=== PATIENT | male | born 1945 | race Caucasian/White ===

== ENCOUNTER → 2020-03-01 09:26 | Outpatient (CLI) | payer MEDICARE, SELFPAY ==
[2020-03-01 10:04] VITALS: BP 148/64; PULSE 60; RESP 16; TEMP 36.9; O2SAT 97; BMI 26.4
--- NOTE | 2020-03-01 11:29 | RAD_ITS ---
EXAM DESCRIPTION: PORTABLE AP CHEST CLINICAL HISTORY: 74 years Male, Line placement. Line placement. COMPARISON: None FINDINGS: Sternotomy sutures are noted in place. The rest of the thorax is intact. The heart and mediastinum appear to be within normal limits. The lungs appear to be well areated without evidence of pneumonic consolidation or pleural effusion. RAD/CXR for Line Placement IMPRESSION: Normal portable chest. Electronically Signed: Meliton Palm, at 9:46 EST Tel , Service support ,
[2020-03-01] MEDS: 0.9% NaCl IVPB Med Flush (250 mL) 15 ML IV (12:07)
[2020-03-01] MEDS: 0.9% NaCl PICC Flush IV ×2 (12:07→13:00)
[2020-03-01 12:09] VITALS: BP 144/69; PULSE 55; RESP 16; TEMP 35.9; O2SAT 100; BMI 26.4
[2020-03-01 13:00] VITALS: BP 149/69; PULSE 55; RESP 18; O2SAT 100
== END ==
LOC: RAD 09:36 → MEDOUTP 12:33
PROVIDERS: PCP Internal Medicine; Referring Provider Urology; Visit Provider Urology
DX: N39.0 Urinary tract infection, site not specified (principal)
CPT/HCPCS: 96365; 36569; 71045; J7050; A4216

== ENCOUNTER → 2020-03-01 11:49 | Outpatient (CLI) | payer MEDICARE, SELFPAY ==
[2020-03-01 10:04] VITALS: BMI 26.4
== END ==
PROVIDERS: PCP Internal Medicine; Referring Provider Urology; Visit Provider Urology
DX: Z00.00 Encounter for general adult medical examination without abnormal findings (principal)

== ENCOUNTER → 2020-03-02 08:02 | Outpatient (CLI) | payer MEDICARE, SELFPAY ==
[2020-03-01 12:09] VITALS: BMI 26.4
[2020-03-02 08:21] VITALS: BP 124/56; PULSE 62; TEMP 36.7; BMI 26.4
[2020-03-02] MEDS: 0.9% NaCl PICC Flush IV ×2 (08:35→09:17)
[2020-03-02] MEDS: 0.9% NaCl IVPB Med Flush (250 mL) 15 ML IV (08:36)
[2020-03-02 09:15] VITALS: BP 121/56; PULSE 63; TEMP 36.4; O2SAT 96
== END ==
PROVIDERS: PCP Internal Medicine; Referring Provider Urology; Visit Provider Urology
DX: N39.0 Urinary tract infection, site not specified (principal)
CPT/HCPCS: 96365; J7050; A4216

== ENCOUNTER → 2020-03-03 08:18 | Outpatient (CLI) | payer MEDICARE, SELFPAY ==
[2020-03-02 08:21] VITALS: BMI 26.4
[2020-03-03] MEDS: 0.9% NaCl IVPB Med Flush (250 mL) 15 ML IV (08:24)
[2020-03-03] MEDS: 0.9% NaCl PICC Flush IV ×2 (08:24→09:15)
[2020-03-03 08:26] VITALS: BP 142/61; PULSE 62; RESP 16; TEMP 36.2; O2SAT 97; BMI 26.4
== END ==
PROVIDERS: PCP Internal Medicine; Referring Provider Urology; Visit Provider Urology
DX: N39.0 Urinary tract infection, site not specified (principal)
CPT/HCPCS: 96365; J7050; A4216

== ENCOUNTER → 2020-03-04 07:37 | Outpatient (CLI) | payer MEDICARE, SELFPAY ==
[2020-03-03 08:26] VITALS: BMI 26.4
[2020-03-04] MEDS: 0.9% NaCl PICC Flush IV ×2 (08:29→09:19)
[2020-03-04] MEDS: 0.9% NaCl IVPB Med Flush (250 mL) 15 ML IV (08:29)
[2020-03-04 08:32] VITALS: BP 130/58; PULSE 62; RESP 16; TEMP 36.3; O2SAT 98; BMI 26.4
[2020-03-04 09:20] VITALS: BP 114/61; PULSE 58; RESP 16; TEMP 36.3; O2SAT 98
== END ==
PROVIDERS: PCP Internal Medicine; Referring Provider Urology; Visit Provider Urology
DX: N39.0 Urinary tract infection, site not specified (principal)
CPT/HCPCS: 96365; J7050; A4216

== ENCOUNTER → 2020-03-05 08:18 | Outpatient (CLI) | payer MEDICARE, SELFPAY ==
[2020-03-04 08:32] VITALS: BMI 26.4
[2020-03-05] MEDS: 0.9% NaCl IVPB Med Flush (250 mL) 15 ML IV (08:23)
[2020-03-05] MEDS: 0.9% NaCl PICC Flush IV ×2 (08:23→09:05)
[2020-03-05 08:27] VITALS: BP 118/67; PULSE 63; RESP 16; TEMP 36.3; O2SAT 96; BMI 26.4
== END ==
PROVIDERS: PCP Internal Medicine; Referring Provider Urology; Visit Provider Urology
DX: N39.0 Urinary tract infection, site not specified (principal)
CPT/HCPCS: 96365; J7050; A4216

== ENCOUNTER → 2020-03-06 08:19 | Outpatient (CLI) | payer MEDICARE, SELFPAY ==
[2020-03-05 08:27] VITALS: BMI 26.4
[2020-03-06] MEDS: 0.9% NaCl IVPB Med Flush (250 mL) 15 ML IV (08:28)
[2020-03-06] MEDS: 0.9% NaCl PICC Flush IV ×2 (08:28→09:27)
[2020-03-06 08:33] VITALS: BP 107/60; PULSE 58; RESP 16; TEMP 36.6; O2SAT 96; BMI 26.4
== END ==
PROVIDERS: PCP Internal Medicine; Referring Provider Urology; Visit Provider Urology
DX: N39.0 Urinary tract infection, site not specified (principal)
CPT/HCPCS: 96365; J7050; A4216

== ENCOUNTER → 2020-03-07 08:27 | Outpatient (CLI) | payer MEDICARE, SELFPAY ==
[2020-03-06 08:33] VITALS: BMI 26.4
[2020-03-07 08:40] VITALS: BP 126/70; PULSE 65; RESP 16; TEMP 36.1; O2SAT 98; BMI 12.0
[2020-03-07 09:31] VITALS: BP 119/67; PULSE 62; RESP 16; TEMP 36
== END ==
PROVIDERS: PCP Internal Medicine; Visit Provider Urology
DX: N39.0 Urinary tract infection, site not specified (principal)
CPT/HCPCS: 96365; J7050; A4216

== ENCOUNTER → 2020-03-08 08:21 | Outpatient (CLI) | payer MEDICARE, SELFPAY ==
[2020-03-07 08:40] VITALS: BMI 12.0
[2020-03-08] MEDS: 0.9% NaCl IVPB Med Flush (250 mL) 15 ML IV (08:43)
[2020-03-08] MEDS: 0.9% NaCl PICC Flush IV ×2 (08:43→09:36)
[2020-03-08 08:44] VITALS: BP 103/49; PULSE 62; RESP 16; TEMP 36.6; O2SAT 98; BMI 26.4
[2020-03-08 09:37] VITALS: BP 118/57; PULSE 58; RESP 16; O2SAT 97
== END ==
PROVIDERS: PCP Internal Medicine; Referring Provider Urology; Visit Provider Urology
DX: N39.0 Urinary tract infection, site not specified (principal)
CPT/HCPCS: 96365; J7050; A4216

== ENCOUNTER → 2020-03-09 08:20 | Outpatient (CLI) | payer MEDICARE, SELFPAY ==
[2020-03-08 08:44] VITALS: BMI 26.4
[2020-03-09] MEDS: 0.9% NaCl PICC Flush IV ×2 (08:27→09:17)
[2020-03-09] MEDS: 0.9% NaCl IVPB Med Flush (250 mL) 15 ML IV (08:27)
[2020-03-09 08:28] VITALS: BP 119/61; PULSE 58; RESP 16; TEMP 35.9; O2SAT 98; BMI 26.4
== END ==
PROVIDERS: PCP Internal Medicine; Referring Provider Urology; Visit Provider Urology
DX: N39.0 Urinary tract infection, site not specified (principal)
CPT/HCPCS: 96365; J7050; A4216

== ENCOUNTER → 2020-03-10 08:18 | Outpatient (CLI) | payer MEDICARE, SELFPAY ==
[2020-03-09 08:28] VITALS: BMI 26.4
[2020-03-10 08:25] VITALS: BP 124/63; PULSE 51; RESP 16; TEMP 35.9; O2SAT 97
[2020-03-10] MEDS: 0.9% NaCl PICC Flush IV ×2 (08:27→09:28)
[2020-03-10] MEDS: 0.9% NaCl IVPB Med Flush (250 mL) 15 ML IV (08:27)
[2020-03-10 09:27] VITALS: BP 120/61; PULSE 53; RESP 18; TEMP 36.2; O2SAT 99
== END ==
PROVIDERS: PCP Internal Medicine; Referring Provider Urology; Visit Provider Urology
DX: N39.0 Urinary tract infection, site not specified (principal)
CPT/HCPCS: 96365; J7050; A4216

== ENCOUNTER → 2020-03-11 07:29 | Outpatient (CLI) | payer MEDICARE, SELFPAY ==
[2020-03-09 08:28] VITALS: BMI 26.4
[2020-03-11] MEDS: 0.9% NaCl PICC Flush IV ×2 (08:23→09:14)
[2020-03-11] MEDS: 0.9% NaCl IVPB Med Flush (250 mL) 15 ML IV (08:23)
[2020-03-11 08:28] VITALS: BP 141/54; PULSE 54; RESP 16; TEMP 36.1; O2SAT 100
[2020-03-11 09:16] VITALS: BP 132/65; PULSE 51; RESP 16; O2SAT 98
== END ==
PROVIDERS: PCP Internal Medicine; Referring Provider Urology; Visit Provider Urology
DX: N39.0 Urinary tract infection, site not specified (principal)
CPT/HCPCS: 96365; J7050; A4216

== ENCOUNTER → 2020-03-12 08:18 | Outpatient (CLI) | payer MEDICARE, SELFPAY ==
[2020-03-09 08:28] VITALS: BMI 26.4
[2020-03-12] MEDS: 0.9% NaCl IVPB Med Flush (250 mL) 15 ML IV (08:24)
[2020-03-12] MEDS: 0.9% NaCl PICC Flush IV ×2 (08:24→09:15)
[2020-03-12 08:28] VITALS: BP 141/65; PULSE 54; RESP 16; TEMP 36.3; O2SAT 97; BMI 26.4
== END ==
PROVIDERS: PCP Internal Medicine; Visit Provider Urology
DX: N39.0 Urinary tract infection, site not specified (principal)
CPT/HCPCS: 96365; J7050; A4216

== ENCOUNTER → 2020-03-13 08:17 | Outpatient (CLI) | payer MEDICARE, SELFPAY ==
[2020-03-12 08:28] VITALS: BMI 26.4
[2020-03-13] MEDS: 0.9% NaCl PICC Flush IV ×2 (08:32→09:30)
[2020-03-13] MEDS: 0.9% NaCl IVPB Med Flush (250 mL) 15 ML IV (08:32)
[2020-03-13 08:36] VITALS: BP 117/59; PULSE 49; RESP 16; TEMP 36.4; O2SAT 99; BMI 26.4
[2020-03-13 09:33] VITALS: BP 131/67; PULSE 50; RESP 14; TEMP 36.6; O2SAT 98
== END ==
PROVIDERS: PCP Internal Medicine; Referring Provider Urology; Visit Provider Urology
DX: N39.0 Urinary tract infection, site not specified (principal)
CPT/HCPCS: 96365; J7050; A4216

== ENCOUNTER → 2020-03-14 08:19 | Outpatient (CLI) | payer MEDICARE, SELFPAY ==
[2020-03-13 08:36] VITALS: BMI 26.4
[2020-03-14 08:25] VITALS: BP 94/46; PULSE 52; RESP 16; TEMP 36.4; O2SAT 97
[2020-03-14] MEDS: 0.9% NaCl IVPB Med Flush (250 mL) 15 ML IV (08:27)
[2020-03-14] MEDS: 0.9% NaCl PICC Flush IV ×2 (08:27→09:28)
[2020-03-14 09:26] VITALS: BP 100/52; PULSE 53; RESP 16; TEMP 36.4
== END ==
PROVIDERS: PCP Internal Medicine; Referring Provider Urology; Visit Provider Urology
DX: N39.0 Urinary tract infection, site not specified (principal); N45.2 Orchitis
CPT/HCPCS: 96365; J7050; A4216